=== PATIENT | male | born 1945 | race Caucasian/White ===

== ENCOUNTER 2016-07-20 10:53 | Observation (INO) | payer OTHER, BC ==
[~2016-07-20] VITALS: Ht 172.7 cm; Wt 105.3 kg
[~2016-07-20 10:53] MED LIST: ADULT LOW DOSE81 M1 PO; ALLEGRA30 MG PO; ALLEGRA60 MG PO; AMBIEN10 MG PO; ATORVASTATIN CA20 MG PO; Augmentin PO; CELEBREX200 MG PO; CILOSTAZOL100 MG PO; CILOSTAZOL50 MG PO; CRESTOR5 MG PO; DARVOCET-N 1001 EAC1 PO; GINKGO BILOBA120 M1 PO; GINKGO BILOBA120 MG PO; IMDUR30 MG PO; LOVAZA1 GM PO; METOPROLOL SUCC50 MG PO; MULTIVITAMIN1 EAC1 PO; MULTIVITAMIN1 EAC2 PO; NAPROXEN500 MG PO; NEURONTIN600 MG PO; NITROSTAT0.3 MG SL; Neurontin PO; OSTEO BI-FLEX1 EAC2 PO; OSTEO-BIFLE1 CAPSULE PO; PLAVIX75 MG PO; PRINIVIL10 MG PO; PRINIVIL5 MG PO; Protonix PO; THERAGRAN1 TABLET PO; TORADOL10 MG PO; TYLENOL ALLERG PO; VIAGRA50 MG PO; VOLTAREN 1% GE100 GM TP; ZETIA10 MG PO
[2016-07-20 11:35] LABS: EOSINOPHIL COUNT 0.2 K/uL (0-0.3); HEMATOCRIT 43.8 % (38.0-50.0); IMMATURE GRANULOCYTE (%) 0.1 % (0.0-0.7); IMMATURE GRANULOCYTE COUNT 0.1 K/uL; LYMPHOCYTE COUNT 1.6 K/uL (1.0-2.8); MCH 30.1 PG (29.0-34.0); MCV 88.5 FL (86-99); MEAN PLAT.VOLUME 9.7 uM^3 (9.0-12.4); MONOCYTE (%) 7.7 % (3-12); MONOCYTE COUNT 0.6 K/uL (0-0.8); NEUTROPHIL (%) 67.2 % (45-76); NEUTROPHIL COUNT 4.9 K/uL (1.8-6.4); PLATELET COUNT 220 K/uL (156-360); RBC DIS.WIDTH-CV 13.1 % (11.8-14.6); RBC DIS.WIDTH-SD 41.6 % (39-53); RED BLOOD COUNT 4.95 M/uL (4.00-5.50); WHITE BLOOD COUNT 7.3 K/uL (4.1-10.2)
[2016-07-20 11:43] LABS: CHLORIDE 106 mEq/L (99-109); POTASSIUM 4.3 mEq/L (3.7-5.4)
[2016-07-20 11:44] LABS: SODIUM 137 mEq/L (136-147)
[2016-07-20 11:45] LABS: GLUCOSE 123 mg/dL (70-99)
[2016-07-20 11:46] LABS: PROTHROMBIN TIME 10.5 (9.2-11.2); PTT 36.8 (25-32)
[2016-07-20 11:47] LABS: ANION GAP 12 MEQ/L (2-14)
[2016-07-20 11:49] LABS: GFR ESTIMATE (CALCULATED) > 59 mL/min/
[2016-07-20 11:50] LABS: UREA NITROGEN (BUN) 16 mg/dL (9-23)
[2016-07-20 11:56] LABS: TROP-I INTERPRETATION NEGATIVE; TROPONIN-I < 0.01 ng/mL (0.0-0.30)
[2016-07-20 14:33] VITALS: BP 143/77
[2016-07-20 16:49] VITALS: BP 134/66
[2016-07-20 19:12] LABS: TROP-I INTERPRETATION NEGATIVE; TROPONIN-I < 0.01 ng/mL (0.0-0.30)
[2016-07-20 21:22] VITALS: BP 109/57
[2016-07-21 00:30] VITALS: BP 102/56
[2016-07-21 00:55] LABS: TROP-I INTERPRETATION NEGATIVE; TROPONIN-I < 0.01 ng/mL (0.0-0.30)
[2016-07-21 04:49] VITALS: BP 106/64
[2016-07-21 12:00] VITALS: BP 116/62
[2016-07-22 06:55] LABS: Estimated Average Glucose 128 mg/dL (70-123); HEMOGLOBIN A1c (GLYCOHEMOGLOB) 6.1 % HGB (Below 5.7)
== END 2016-07-21 13:51 | disposition home or self-care (01) ==
LOC: EME 10:53 → EDOF 12:56 → 5WEST 14:25
PROVIDERS: Emergency Medicine; Hospitalist
DX: R07.89 Other chest pain (principal); I25.10 Atherosclerotic heart disease of native coronary artery without angina pectoris; Z98.61 Coronary angioplasty status; I10 Essential (primary) hypertension; E78.5 Hyperlipidemia, unspecified; Z87.891 Personal history of nicotine dependence; Z96.643 Presence of artificial hip joint, bilateral; Z96.652 Presence of left artificial knee joint; Z96.611 Presence of right artificial shoulder joint; Z82.49 Family history of ischemic heart disease and other diseases of the circulatory system; Z79.82 Long term (current) use of aspirin; Z88.5 Allergy status to narcotic agent; Z88.8 Allergy status to other drugs, medicaments and biological substances
CPT/HCPCS: 71010; 80048; 83036; 84484; 85025; 85610; 85730; 93005; 99281; 99285; G0378; J1650

== ENCOUNTER 2016-08-05 11:15 | Day surgery (SDC) | payer OTHER, BC ==
[~2016-08-05] VITALS: Ht 172.7 cm; Wt 105.7 kg
== END 2016-08-05 18:40 | disposition home or self-care (01) ==
LOC: CATH 11:15
DX: I25.10 Atherosclerotic heart disease of native coronary artery without angina pectoris (principal); I25.82 Chronic total occlusion of coronary artery; T82.855A Stenosis of coronary artery stent, initial encounter; Y83.1 Surgical operation with implant of artificial internal device as the cause of abnormal reaction of the patient, or of later complication, without mention of misadventure at the time of the procedure; Z98.61 Coronary angioplasty status; I10 Essential (primary) hypertension; E78.2 Mixed hyperlipidemia; E66.9 Obesity, unspecified; Z68.34 Body mass index [BMI] 34.0-34.9, adult; Z87.891 Personal history of nicotine dependence; Z79.82 Long term (current) use of aspirin; Z79.02 Long term (current) use of antithrombotics/antiplatelets; Z88.5 Allergy status to narcotic agent
CPT/HCPCS: C1769; C1887; J0461; J1644; J2250; J3010; J7050

== ENCOUNTER 2017-10-04 17:37 | Emergency (ER) | payer OTHER, BC ==
[~2017-10-04] VITALS: Ht 172.7 cm; Wt 106.9 kg
[2017-10-04] MEDS ORDERED: GABAPENTIN100 MG PO (18:01)
[2017-10-04] MEDS ORDERED: AUGMENTIN875 MG PO (18:02)
[2017-10-04 18:20] VITALS: BP 156/91
== END 2017-10-04 18:21 | disposition home or self-care (01) ==
LOC: EME 17:37
DX: S81.851A Open bite, right lower leg, initial encounter (principal); W54.0XXA Bitten by dog, initial encounter; Y92.830 Public park as the place of occurrence of the external cause; I10 Essential (primary) hypertension; I25.2 Old myocardial infarction; E78.5 Hyperlipidemia, unspecified; Z96.643 Presence of artificial hip joint, bilateral; Z96.612 Presence of left artificial shoulder joint; Z96.611 Presence of right artificial shoulder joint; Z95.5 Presence of coronary angioplasty implant and graft; Z88.5 Allergy status to narcotic agent; Z88.8 Allergy status to other drugs, medicaments and biological substances
CPT/HCPCS: 99281; 99284